=== PATIENT | female | born 1975 | race Caucasian/White ===

== ENCOUNTER 2016-07-01 13:18 | Emergency (ER) | payer BC, OTHER ==
[2016-07-01 13:42] VITALS: RESP 18
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
--- NOTE | 2016-07-01 14:49 | XR ---
EXAMINATION TYPE: XR forearm LT DATE OF EXAM: 07/01/2016 COMPARISON: NONE HISTORY: Pain Two views of the forearm demonstrate that the osseous structures appear to be intact and the joint sp aces appear to be preserved. There is no acute fracture or dislocation. Soft tissue edema noted. IMPRESSION: 1. No acute fracture or dislocation
--- NOTE | 2016-07-01 14:51 | XR ---
EXAMINATION TYPE: XR chest 2V DATE OF EXAM: 07/01/2016 2:44 PM COMPARISON: NONE TECHNIQUE: PA and lateral views submitted. HISTORY: Pain FINDINGS: The lungs are clear and there is no pneumothorax, pleural effusion, or focal pneumonia. IMPRESSION: 1. No acute process.
[2016-07-01 15:18] VITALS: BP 120/80; PULSE 88; TEMP 99.1
== END 2016-07-01 15:34 | disposition home or self-care (01) ==
LOC: EC 13:18
DX: S50.12XA Contusion of left forearm, initial encounter (principal); S20.212A Contusion of left front wall of thorax, initial encounter; Z88.0 Allergy status to penicillin; Z88.1 Allergy status to other antibiotic agents; Z88.2 Allergy status to sulfonamides; Z88.8 Allergy status to other drugs, medicaments and biological substances; Z91.013 Allergy to seafood; Z79.899 Other long term (current) drug therapy; V43.52XA Car driver injured in collision with other type car in traffic accident, initial encounter; Y92.410 Unspecified street and highway as the place of occurrence of the external cause
CPT/HCPCS: 71020; 99284